=== PATIENT | male | born 1985 | race Caucasian/White ===

== ENCOUNTER 2017-02-13 15:25 | Emergency (ER) | payer MEDICAID ==
[~2017-02-13] VITALS: Ht 180.3 cm; Wt 77.2 kg
[2017-02-13 15:27] VITALS: BP 134/85; PULSE 73; RESP 20; TEMP 98.4; O2SAT 98
[2017-02-13] MEDS ORDERED: PRED-503 PO (15:48)
[2017-02-13] MEDS ORDERED: CYCL1TAB29 PO (15:48)
[2017-02-13] MEDS ORDERED: IBUP800T23 PO (15:48)
--- NOTE | 2017-02-13 15:49 | PD ---
HPI Chief Complaint: Pain: Acute or Chronic Time Seen by Provider: 15:45 Travel History International Travel<30 days: No Contact w/Intl Traveler<30days: No Traveled to known affect area: No History of Present Illness HPI 32-year-old male, with history of chronic low back pain and previous low back surgery, with complaint of paresthesias to his right posterior thigh with a burning sensation since yesterday after jumping down from something. Reports history of chronic low back pain and no change in his back pain. Denies encopresis, incontinence, saddle anesthesias. Denies fever, vomiting, abdominal pain. Denies IV drug use. Denies cancer. Denies paresthesias, loss of sensation, decreased range of motion, decreased strength to bilateral lower extremities. Patient ambulatory with a right-sided limp. Has taken hydrocodone with good relief. Has not tried any other treatments or medications to alleviate his symptoms. No known allergies. Has no other medical complaints. No other modifying factors or associated signs and symptoms. PFSH Past Medical History Musculoskeletal: Yes (BACK) Past Surgical History Other Surgery: Yes (BACK, JAW) Social History Alcohol Use: Yes Tobacco Use: No Substance Use: Yes Allergies-Medications (Allergen,Severity, Reaction): Coded Allergies: No Known Allergies (Verified , 02/13/17) Reported Meds & Prescriptions Reported Meds & Active Scripts Active Flexeril (Cyclobenzaprine HCl) 10 Mg Tab 10 Mg PO TID PRN Ibuprofen 800 Mg Tab 800 Mg PO Q6HR PRN Deltasone (Prednisone) 20 Mg Tab 40 Mg PO DAILY 5 Days Review of Systems Except as stated in HPI: all other systems reviewed are Neg Physical Exam Narrative GENERAL: Well-nourished, well-developed patient, in no acute distress SKIN: Warm and dry. Midline surgical scar to lower back. HEAD: Atraumatic. Normocephalic. EYES: Pupils equal and round. No scleral icterus. No injection or drainage. ENT: Mucosa pink and moist. Airway patent. NECK: Trachea midline. CARDIOVASCULAR: Regular rate. RESPIRATORY: No accessory muscle use. GASTROINTESTINAL: Flat. MUSCULOSKELETAL: Bilateral lower extremities supple and non-tense with 2+ pedal pulses and sensory intact; with full range of motion and 5/5 strength. 2 + DTRs bilaterally. Active dorsiflexion and extension of bilateral feet. Bilateral straight leg raise is negative for low back pain. Ambulatory with right-sided limp. Sitting up in bed at 90. No obvious deformities. No clubbing. No cyanosis. No edema. BACK: No midline point tenderness on palpation of the lumbar, thoracic, or cervical spine. Tenderness on palpation of right iliosacral area. No obvious deformities. NEUROLOGICAL: Awake and alert. Oriented 3. No obvious cranial nerve deficits. Motor grossly within normal limits. Normal speech. Moves all extremities. 5/5 strength to all extremities. Sensory intact. PSYCHIATRIC: Appropriate mood and affect; insight and judgment normal. Data Data Last Documented VS Vital Signs Date Time Temp Pulse Resp B/P Pulse Ox O2 Delivery O2 Flow Rate FiO2 02/13/17 15:27 98.4 73 20 134/85 98 Room Air MDM Medical Decision Making Medical Screen Exam Complete: Yes Emergency Medical Condition: Yes Medical Record Reviewed: Yes Differential Diagnosis Acute exacerbation of chronic low back pain, sciatica, lumbar radiculopathy Narrative Course 32-year-old male with history of chronic low back pain with acute exacerbation of chronic low back pain and right-sided sciatica. Denies IV drug use or cancer. Patient is afebrile and nontoxic-appearing. Denies fever, vomiting. Patient ambulatory in the room with a limp to the right lower extremity. History of lumbar surgery with midline scar noted. No midline point tenderness on palpation of the lumbar spine. I offered the patient an injection of Decadron and he declined; says he has a fear of needles. Ibuprofen, Flexeril, Deltasone prescribed for home. Patient verbalizes understanding and agreement with treatment plan. Patient is medically cleared and stable for discharge. Discussed reasons to return to the emergency department. Instructed patient to follow up with primary care provider. Patient agrees with treatment plan. The patients vital signs are stable and the patient is stable for outpatient follow- up and treatment. Patient discharged home, stable and in no acute distress. Diagnosis Primary Impression: Acute exacerbation of chronic low back pain Additional Impression: Right sided sciatica Referrals: Primary Care Physician Patient Instructions: Acute Low Back Pain (ED), General Instructions, Sciatica (ED) Additional Instructions: Tylenol or ibuprofen as directed and as needed to reduce pain Robaxin as prescribed for muscle spasms Get adequate rest Ice and/or heating pad to affected area to reduce pain Avoid aggravating activity; increase activity as tolerated Follow-up with primary care provider Return to the emergency department immediately with worsening symptoms Med/Other Pt SpecificInfo: Prescription(s) given Scripts Cyclobenzaprine (Flexeril)10 Mg Tab10 Mg PO TID PRN (MUSCLE SPASM) #30 TAB Ref 0 Prov:Candi Juan 02/13/17 Ibuprofen 800 Mg Umi332 Mg PO Q6HR PRN (PAIN) #30 TAB Ref 0 Prov:Candi Juan 02/13/17 Prednisone (Deltasone)20 Mg Tab40 Mg PO DAILY 5 Days Ref 0 Prov:Candi Juan 02/13/17 Disposition: 01 DISCHARGE HOME Condition: Stable Candi Juan February 13, 2017 15:49
== END 2017-02-13 15:54 | disposition home or self-care (01) ==
LOC: NEPK 15:25
DX: M54.5 Low back pain (principal); G89.29 Other chronic pain; M54.31 Sciatica, right side
CPT/HCPCS: 99283